=== PATIENT | female | born 1955 | race Caucasian/White ===

== ENCOUNTER 2020-11-12 12:18 | Emergency (ER) | payer SELFPAY ==
[2020-11-12 12:59] VITALS: BP 146/75; PULSE 67; RESP 16; TEMP 36.6; O2SAT 97; BMI 34.0
== END 2020-11-12 18:47 | disposition left against medical advice (07) ==
PROVIDERS: Emergency Provider Emergency Medicine; PCP Physician Assistant
DX: R51.9 Headache, unspecified (principal); J02.9 Acute pharyngitis, unspecified; M54.6 Pain in thoracic spine; Z86.19 Personal history of other infectious and parasitic diseases
CPT/HCPCS: 99281; 99282